=== PATIENT | male | born 1975 | race Two or more races ===

== ENCOUNTER 2020-09-05 10:45 | Emergency (ER) | payer OTHER ==
[~2020-09-05] VITALS: Ht 177.8 cm; Wt 82.4 kg
--- NOTE | 2020-09-05 11:02 | NUR ---
PT STATES HE WAS WORKING WITH HIS SAW AT HIS HOUSE IN THE MORNING AROUND 0900 AND CUT HIS LEFT RING FINGER. CMS INTACT. BLEEDING CONTROLLED. VSS. PT CURRENTLY RESTING IN BED.
[2020-09-05 11:03] VITALS: BP 134/81
[2020-09-05] MEDS ORDERED: BUPIVACAINE 0.25% ONE (11:41)
[2020-09-05] MEDS ORDERED: DIPH,PERTUSS(ACELL),TET VAC/PF 0.5 ML IM-VACC ONE ×2 (11:42→12:00)
[2020-09-05] MEDS ORDERED: LIDOCAINE-MPF 1%, 5ML ONE (11:42)
--- NOTE | 2020-09-05 11:50 | NUR ---
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
[2020-09-05] MEDS ORDERED: BUPIVACAINE/PF 0.25% INFIL ONE (12:00)
[2020-09-05] MEDS ORDERED: LIDOCAINE-MPF 1%, 5ML INFIL ONE (12:00)
[2020-09-05] MEDS ORDERED: NEOSPORIN OINT. PKT 1 PACKET ONE (12:31)
== END 2020-09-05 12:59 | disposition home or self-care (01) ==
LOC: ED 12:53
DX: S91.115A Laceration without foreign body of left lesser toe(s) without damage to nail, initial encounter (principal); X58.XXXA Exposure to other specified factors, initial encounter; Y93.89 Activity, other specified; Y92.099 Unspecified place in other non-institutional residence as the place of occurrence of the external cause; Y99.8 Other external cause status
CPT/HCPCS: 12001; 90471; 90715